=== PATIENT | female | born 1995 | race Two or more races ===

== ENCOUNTER 2024-06-02 12:31 | Outpatient (CLI) | payer OTHER | END 2024-06-02 13:01 | disposition home or self-care (01) | LOC: NST 12:31 | PROVIDERS: ATTEND Obstetrics & Gynecology Maternal & Fetal Medicine | DX: Z34.83 Encounter for supervision of other normal pregnancy, third trimester (principal) ==

== ENCOUNTER → 2024-06-05 | Outpatient (CLI) | payer OTHER | END | disposition home or self-care (01) | LOC: NST 13:38 | PROVIDERS: ATTEND Obstetrics & Gynecology Maternal & Fetal Medicine | DX: Z34.83 Encounter for supervision of other normal pregnancy, third trimester (principal) ==

== ENCOUNTER 2024-06-08 11:14 | Inpatient (IN) | payer OTHER ==
[~2024-06-08] VITALS: Ht 165.1 cm; Wt 3.2 kg
[2024-06-12 01:54] VITALS: BP 125/71
[2024-06-12] MEDS ORDERED: PRENATAL TABLE1 EAC1 PO (02:41)
[2024-06-12] MEDS ORDERED: RINGERS SOLUTION,LACTATED 1,000 ML IV SCH (02:45)
[2024-06-12] MEDS ORDERED: AMPICILLIN SODIUM 2,000 MG VIAL IV ONE (02:45)
[2024-06-12] MEDS ORDERED: MORPHINE SULFATE 4 MG/ML CARTRIDGE IV PRN (02:45)
[2024-06-12 03:25] LABS: HEMATOCRIT 35.2 % (36.0-45.00); HEMOGLOBIN 11.5 g/dL (12.0-15.00); MEAN CELL VOLUME 81.7 fL (80.00-100.00); MEAN CORPUSCULAR HEMOGLOBIN 26.7 pg (27.00-32.0); MEAN CORPUSCULAR HGB CONC 32.7 g/dl (32.0-36.0); PLATELET COUNT 323 K/uL (150-450); RED BLOOD COUNT 4.31 M/uL (4.00-6.00); RED CELL DISTRIBUTION WIDTH 16.6 % (11.5-14.5)
[2024-06-12 03:31] LABS: INR < 0.93; PROTHROMBIN TIME 9.8 SECONDS (9.0-11.5)
[2024-06-12 07:29] VITALS: BP 115/56
[2024-06-12] MEDS ORDERED: AMPICILLIN SODIUM 1,000 MG VIAL IV SCH (08:00)
[2024-06-12 10:25] VITALS: BP 131/56
[2024-06-12] MEDS ORDERED: MISOPROSTOL 25 MCG TABLET VAG ONE (12:30)
[2024-06-12] MEDS ORDERED: OXYTOCIN 500 ML IV ONE (16:00)
[2024-06-12 16:05] VITALS: BP 123/66
[2024-06-12 19:48] VITALS: BP 144/72
[2024-06-12 23:43] VITALS: BP 129/53
[2024-06-13 00:21] VITALS: BP 141/63
[2024-06-13 04:27] VITALS: BP 138/57
[2024-06-13] MEDS ORDERED: FAMOTIDINE/PF 20 MG/2 ML VIAL IV PUSH ONE (07:30)
[2024-06-13 07:36] VITALS: BP 146/60
[2024-06-13] MEDS ORDERED: OXYTOCIN 1,000 ML IV ONE (08:15)
[2024-06-13] MEDS ORDERED: CEFAZOLIN SODIUM 1,000 MG VIAL IV ONE (08:15)
[2024-06-13] MEDS ORDERED: SIMETHICONE 125 MG CAPSULE PO SCH (09:00)
[2024-06-13] MEDS ORDERED: PNV,CALCIUM 72/IRON/FOLIC ACID 1 TAB TABLET PO SCH (09:00)
[2024-06-13] MEDS ORDERED: DOCUSATE SODIUM 100MG CAP PO SCH (09:00)
[2024-06-13] MEDS ORDERED: OXYTOCIN 10 UNITS/ML VIAL IV ONE (09:45)
[2024-06-13] MEDS ORDERED: ERYTHROMYCIN BASE OPHT 1GM EACH TUBE OP ONE (09:45)
[2024-06-13] MEDS ORDERED: PROMETHAZINE HCL 25 MG/ML AMPUL IV SCH (12:00)
[2024-06-13] MEDS ORDERED: MEPERIDINE HCL 25 MG/ML AMPUL IV SCH (12:00)
[2024-06-13 12:19] VITALS: BP 122/64; O2SAT 96
[2024-06-13 15:41] VITALS: BP 100/60
[2024-06-13] MEDS ORDERED: MORPHINE SULFATE 4 MG/ML CARTRIDGE IV SCH (17:00)
[2024-06-13] MEDS ORDERED: GABAPENTIN 300 MG CAPSULE PO SCH (17:00)
[2024-06-13] MEDS ORDERED: ACETAMINOPHEN 500 MG GEL..CAP PO SCH (18:00)
[2024-06-13] MEDS ORDERED: ACETAMINOPHEN 325 MG TABLET PO SCH (21:00)
[2024-06-14] VITALS: BP 93/60; O2SAT 98
[2024-06-14 07:17] LABS: HEMATOCRIT 29.1 % (36.0-45.00); HEMOGLOBIN 9.5 g/dL (12.0-15.00); MEAN CELL VOLUME 83.1 fL (80.00-100.00); MEAN CORPUSCULAR HEMOGLOBIN 27.2 pg (27.00-32.0); MEAN CORPUSCULAR HGB CONC 32.8 g/dl (32.0-36.0); PLATELET COUNT 272 K/uL (150-450); RED CELL DISTRIBUTION WIDTH 16.6 % (11.5-14.5)
[2024-06-14 09:58] VITALS: BP 127/74; O2SAT 100
[2024-06-14 16:12] VITALS: BP 100/63; O2SAT 98
[2024-06-15 01:15] VITALS: BP 106/70; O2SAT 99
[2024-06-15 12:25] VITALS: BP 130/77
[2024-06-15 15:32] VITALS: BP 105/69; O2SAT 97
[2024-06-16 00:44] VITALS: BP 109/69
[2024-06-16 10:55] VITALS: BP 117/74
== END 2024-06-16 13:22 | DRG 788 ==
LOC: OB/GYN 11:14 → LDR 06-12 02:37 → OB/GYN 06-12 03:13 → LDR 06-12 04:59 → OB/GYN 06-13 10:04
PROVIDERS: Obstetrics & Gynecology Gynecology; ADMIT Obstetrics & Gynecology; ATTEND Obstetrics & Gynecology
PROC: 3E0P7VZ Introduction of Hormone into Female Reproductive, Via Natural or Artificial Opening (ICD-10-PCS; 2024-06-12)
PROC: 4A1HXCZ Monitoring of Products of Conception, Cardiac Rate, External Approach (ICD-10-PCS; 2024-06-12)
PROC: 3E033VJ Introduction of Other Hormone into Peripheral Vein, Percutaneous Approach (ICD-10-PCS; 2024-06-13)
PROC: B54BZZZ Ultrasonography of Right Lower Extremity Veins (ICD-10-PCS; 2024-06-13)
PROC: 10D00Z1 Extraction of Products of Conception, Low, Open Approach (ICD-10-PCS; principal; 2024-06-13 10:15)
DX: O82 Encounter for cesarean delivery without indication (principal); O62.1 Secondary uterine inertia; Z3A.40 40 weeks gestation of pregnancy; Z37.0 Single live birth; Z20.822 Contact with and (suspected) exposure to COVID-19

== ENCOUNTER 2024-06-10 10:04 | Outpatient (CLI) | payer OTHER | END 2024-06-10 10:51 | disposition home or self-care (01) | LOC: NST 10:04 | PROVIDERS: ATTEND Obstetrics & Gynecology | DX: Z34.83 Encounter for supervision of other normal pregnancy, third trimester (principal) ==

== ENCOUNTER 2024-06-10 13:25 | Outpatient (CLI) | payer OTHER | END 2024-06-10 13:28 | disposition home or self-care (01) | LOC: NUCLEAR 13:25 | PROVIDERS: ATTEND Obstetrics & Gynecology Gynecology | DX: I82.401 Acute embolism and thrombosis of unspecified deep veins of right lower extremity (principal); I83.91 Asymptomatic varicose veins of right lower extremity ==